=== PATIENT | female | born 2000 | race Caucasian/White ===

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

== ENCOUNTER 2020-04-05 15:32 | Emergency (ER) | payer OTHER ==
[2020-04-05 15:37] VITALS: BP 111/74; PULSE 92; TEMP 99.5; BMI 34.2
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
== END 2020-04-05 16:09 | disposition home or self-care (01) ==
LOC: JERFT 15:32
DX: Z48.02 Encounter for removal of sutures (principal)
CPT/HCPCS: 99281-25

== ENCOUNTER 2020-06-15 19:12 | Emergency (ER) | payer OTHER ==
[2020-06-15 19:22] VITALS: BP 130/74; PULSE 90; TEMP 98; BMI 34.7
[2020-06-15 22:12] LABS: HIV INTERPRETATION NEGATIVE (NEGATIVE)
== END 2020-06-15 22:26 | disposition home or self-care (01) ==
LOC: JERFT 19:12 → SUPCPDRO 19:12 → JERFT 22:26
DX: N89.8 Other specified noninflammatory disorders of vagina (principal)
CPT/HCPCS: 36415; 87389; 87529; 99283-25

== ENCOUNTER 2020-06-18 23:14 | Emergency (ER) | payer OTHER ==
[2020-06-18 23:24] VITALS: BP 135/69; PULSE 108; TEMP 98.9; BMI 34.7
[2020-06-19] MEDS ORDERED: FLUCONAZOLE 50 MG TABLET PO ONE (00:10)
[2020-06-19 00:15] LABS: HCG,QUALITATIVE URINE Negative
[2020-06-19 00:22] LABS: URINE COLOR YELLOW; URINE GLUCOSE (UA) NEGATIVE (NEGATIVE)
[2020-06-19] MEDS ORDERED: FLUCONAZOLE 100 MG TABLET (UD) ONE (00:22)
[2020-06-19 00:23] LABS: URINE BILIRUBIN NEGATIVE (NEGATIVE); URINE KETONE TRACE (NEGATIVE); URINE NITRITE NEGATIVE (NEGATIVE); URINE PROTEIN TRACE (NEGATIVE); URINE UROBILINOGEN 4.0 E.U/dl mg/dL (0.2-1.0)
[2020-06-19 00:28] LABS: EPI CELLS 35 /uL (0-25.1); HYALINE CASTS 5 /uL (0-3.1); URINE APPEARANCE CLOUDY; URINE BACTERIA 7092 /uL (0-1359); URINE LEUK ESTERASE 2+ (NEGATIVE); URINE RBC 16 /uL (0-23.9); URINE WBC 1249 /uL (0-25.8)
== END 2020-06-19 00:38 | disposition home or self-care (01) ==
LOC: JER 23:14
DX: N76.0 Acute vaginitis (principal); B37.3 Candidiasis of vulva and vagina; N30.00 Acute cystitis without hematuria
CPT/HCPCS: 36415; 81003; 84703; 87086; 87491; 87591; 99283-25

== ENCOUNTER 2020-12-22 08:44 | Emergency (ER) | payer OTHER ==
[2020-12-22 08:51] VITALS: BP 112/63; PULSE 90; TEMP 98.2; BMI 37.5
[2020-12-22] MEDS ORDERED: DEXAMETHASONE LIQUID 0.5 MG/5 ML PO ONE (09:26)
[2020-12-22] MEDS ORDERED: DEXAMETHASONE SOD PHOSPHATE 10 MG/1 ML VIAL ONE (09:30)
== END 2020-12-22 11:36 | disposition home or self-care (01) ==
LOC: JER 08:44
DX: J06.9 Acute upper respiratory infection, unspecified (principal); Z11.52 Encounter for screening for COVID-19
CPT/HCPCS: 87880; 99283-25; C9803; U0003; U0005

== ENCOUNTER 2021-12-15 00:52 | Emergency (ER) | payer OTHER ==
[2021-12-15 01:23] VITALS: BP 142/85; PULSE 78; TEMP 98.1; BMI 36.6
[2021-12-15 03:06] LABS: HCG,QUALITATIVE URINE Negative
[2021-12-15 03:20] LABS: EPI CELLS 11 /uL (0-25.1); HYALINE CASTS 2 /uL (0-3.1); URINE APPEARANCE CLEAR; URINE BACTERIA 227 /uL (0-1359); URINE BILIRUBIN NEGATIVE (NEGATIVE); URINE COLOR YELLOW; URINE GLUCOSE (UA) NEGATIVE (NEGATIVE); URINE KETONE TRACE (NEGATIVE); URINE LEUK ESTERASE TRACE (NEGATIVE); URINE NITRITE NEGATIVE (NEGATIVE); URINE PROTEIN NEGATIVE (NEGATIVE); URINE RBC 5 /uL (0-23.9); URINE WBC 27 /uL (0-25.8)
[2021-12-15 16:29] LABS: HIV INTERPRETATION NEGATIVE (NEGATIVE)
[2021-12-15 19:33] LABS: SYPHILIS W/ RPR CONF NON-REACTIVE (NONREACTIVE)
== END 2021-12-15 03:42 | disposition home or self-care (01) ==
LOC: JER 00:52
DX: Z20.2 Contact with and (suspected) exposure to infections with a predominantly sexual mode of transmission (principal)
CPT/HCPCS: 36415; 81003; 84703; 86704; 86705; 86780; 86803; 87086; 87340; 87389; 87491; 87517; 87591; 99283-25

== ENCOUNTER 2022-02-01 03:01 | Emergency (ER) | payer OTHER ==
[2022-02-01 03:41] VITALS: BP 141/71; PULSE 82; TEMP 98.1; BMI 54.8
== END 2022-02-01 06:04 | disposition home or self-care (01) ==
LOC: JER 03:01
DX: R05.9 Cough, unspecified (principal)
CPT/HCPCS: 0241U-QW; 99283-25

== ENCOUNTER 2023-01-24 14:33 | Emergency (ER) | payer OTHER ==
[2023-01-24 14:43] VITALS: BP 117/81; PULSE 92; RESP 18; TEMP 98.5; BMI 41.6
[2023-01-24] MEDS ORDERED: DEXAMETHASONE 4 MG TABLET (FP) PO ONE (15:56)
[2023-01-24] MEDS ORDERED: AMOXICILLIN 500 MG CAPSULE (FP) PO ONE (15:56)
[2023-01-24] MEDS ORDERED: AMOXICILLIN 250 MG CAPSULE ONE (15:57)
[2023-01-24] MEDS ORDERED: DEXAMETHASONE SOD PHOSPHATE 10 MG/1 ML VIAL ONE (15:57)
== END 2023-01-24 16:34 | disposition home or self-care (01) ==
LOC: JERFT 14:33 → JER 14:33 → JERFT 16:34
DX: R07.0 Pain in throat (principal); R13.10 Dysphagia, unspecified; R59.0 Localized enlarged lymph nodes; J03.80 Acute tonsillitis due to other specified organisms
CPT/HCPCS: 87651; 99283-25